=== PATIENT | male | born 1970 | race Caucasian/White ===

== ENCOUNTER → 2017-01-11 | Outpatient (CLI) | payer OTHER ==
--- NOTE | 2017-01-11 13:57 | KCIC ---
3 view right foot HISTORY: Gout. Right foot pain and swelling for a few days. Pain medial. FINDINGS: Bifid morphology of the lateral hallux sesamoid. No evidence of an acute fracture or bone destruction. Calcaneal spurs are noted. Mild degenerative spurring at the tibiotalar joint. No significant soft tissue abnormality. No dislocation. IMPRESSION: No evidence of acute radiographic abnormality. Electronically signed by: Mario Polo MD (01/11/2017 1:53 PM) [facility]
== END | disposition home or self-care (01) ==
LOC: KCIC 13:26
PROVIDERS: ATTEND Clinical Nurse Specialist Family Health
DX: M79.671 Pain in right foot (principal); M10.9 Gout, unspecified
CPT/HCPCS: 73630

== ENCOUNTER 2018-02-19 10:26 | Emergency (ER) | payer OTHER ==
[~2018-02-19] VITALS: Ht 185.4 cm; Wt 104.3 kg
[2018-02-19] MEDS ORDERED: IV NORMAL SALINE 1000ML BAG 1,000 ML IV SCH (10:58)
[2018-02-19] MEDS ORDERED: ONDANSETRON PF 4 MG/2 ML VIAL. IV ONE (11:00)
[2018-02-19] MEDS ORDERED: fentaNYL PF VIAL 100 MCG/2 ML VIAL IV ONE (11:00)
--- NOTE | 2018-02-19 11:06 | PHYS DOC ---
Past Medical History Additional Past Medical Histor: anxiety, insomnia Past Surgical History: No Surgical History Smoking: Chew Alcohol Use: Occasionally Adult General Chief Complaint Chief Complaint: ABDOMINAL PAIN HPI HPI Patient is a 47-year-old male who presents to the emergency room for evaluation of left upper and lower abdominal pain, which began this morning. He has had some nausea but no vomiting. Pain is in his left upper abdomen and radiates towards his left lower abdomen. He has had diverticulitis twice before, last episode 2 years ago. He has not had any fevers or chills, denies any hematuria or dysuria. He is uncertain if the pain feels exactly the same as his prior episodes of diverticulitis. There are no alleviating or exacerbating factors to his symptoms. The patient is very fidgety and unable to get comfortable, similar to classical presentation of patients with kidney stones. He has never had renal stones before. Review of Systems Review of Systems Constitutional: Denies fever or chills [] Eyes: Denies change in visual acuity, redness, or eye pain [] HENT: Denies nasal congestion or sore throat [] Respiratory: Denies cough or shortness of breath [] Cardiovascular: The patient denies any shortness of breath, chest pain, palpitations, or orthopnea [] GI: Denies vomiting, bloody stools or diarrhea [] : Denies dysuria or hematuria [] Musculoskeletal: Denies back pain or joint pain [] Integument: Denies rash or skin lesions [] Neurologic: Denies headache, focal weakness or sensory changes [] Endocrine: Denies polyuria or polydipsia [] All other systems were reviewed and found to be within normal limits, except as documented in this note. Current Medications Current Medications Current Medications Medications (Trade) Dose Ordered Sig/Kirk Start Time Stop Time Status Last Admin Dose Admin Fentanyl Citrate (Fentanyl 2ml Vial) 50 mcg 1X ONCE 02/19/18 11:00 02/19/18 11:02 DC 02/19/18 11:18 50 MCG Ondansetron HCl (Zofran) 4 mg 1X ONCE 02/19/18 11:00 02/19/18 11:02 DC 02/19/18 11:18 4 MG Sodium Chloride 1,000 ml @ 1,000 mls/hr Q1H 02/19/18 10:58 02/19/18 11:57 DC 02/19/18 11:20 1,000 MLS/HR Allergies Allergies Allergies Coded Allergies Type Severity Reaction Last Updated Verified codeine Allergy Intermediate Rash 02/19/18 Yes Physical Exam Physical Exam PHYSICAL EXAM: CONSTITUTIONAL: Well developed, well nourished HEAD: normocephalic, atraumatic EENT: PERRL, EOMI. Conjunctivae normal color, sclerae non-icteric; moist mucous membranes. NECK: Supple, non-tender; no meningismus. LUNGS: Lungs CTA, breathing even and unlabored. Normal air movement. HEART: Regular rate and rhythm, no murmur CHEST: No deformity; non-tender ABDOMEN: The abdomen is soft, there is diffuse tenderness to palpation left mid and lower abdomen, without rebound or guarding. Normal bowel sounds are present. The remainder the abdomen is soft and non-tender, no masses or bruits. EXTREM: Normal ROM; no deformity, no calf tenderness. Normal pulses palpable in all extremities. There is no pedal edema. SKIN: No rash; no diaphoresis NEURO: Alert; normal speech and cognition; CN's grossly intact; strength grossly intact without focal deficit. 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 Current Patient Data Vital Signs Vital Signs Date Time Temp Pulse Resp B/P (MAP) Pulse Ox O2 Delivery O2 Flow Rate FiO2 02/19/18 11:18 20 Room Air 02/19/18 10:40 98.3 80 176/106 (129) 98 98.3 Lab Values Laboratory Tests Test 02/19/18 11:20 White Blood Count 7.1 x10^3/uL (4.0-11.0) Red Blood Count 5.17 x10^6/uL (4.30-5.70) Hemoglobin 15.6 g/dL (13.0-17.5) Hematocrit 45.0 % (39.0-53.0) Mean Corpuscular Volume 87 fL (79-100) Mean Corpuscular Hemoglobin 30 pg (25-35) Mean Corpuscular Hemoglobin Concent 35 g/dL (31-37) Red Cell Distribution Width 13.1 % (11.5-14.5) Platelet Count 222 x10^3/uL (140-400) Neutrophils (%) (Auto) 59 % (31-73) Lymphocytes (%) (Auto) 27 % (24-48) Monocytes (%) (Auto) 8 % (0-9) Eosinophils (%) (Auto) 5 % (0-3) H Basophils (%) (Auto) 1 % (0-3) Neutrophils # (Auto) 4.2 x10^3uL (1.8-7.7) Lymphocytes # (Auto) 1.9 x10^3/uL (1.0-4.8) Monocytes # (Auto) 0.6 x10^3/uL (0.0-1.1) Eosinophils # (Auto) 0.3 x10^3/uL (0.0-0.7) Basophils # (Auto) 0.1 x10^3/uL (0.0-0.2) Urine Collection Type Void Urine Color Yellow Urine Clarity Clear Urine pH 5.0 Urine Specific [place] 1.020 Urine Protein Negative mg/dL (NEG-TRACE) Urine Glucose (UA) Negative mg/dL (NEG) Urine Ketones (Stick) Negative mg/dL (NEG) Urine Blood Negative (NEG) Urine Nitrite Negative (NEG) Urine Bilirubin Negative (NEG) Urine Urobilinogen Dipstick 0.2 mg/dL (0.2 mg/dL) Urine Leukocyte Esterase Negative (NEG) Urine RBC 0 /HPF (0-2) Urine WBC 0 /HPF (0-4) Urine Squamous Epithelial Cells None /LPF Urine Bacteria 0 /HPF (0-FEW) Urine Mucus Marked /LPF Sodium Level 141 mmol/L (136-145) Potassium Level 3.9 mmol/L (3.5-5.1) Chloride Level 103 mmol/L (98-107) Carbon Dioxide Level 27 mmol/L (21-32) Anion Gap 11 (6-14) Blood Urea Nitrogen 10 mg/dL (8-26) Creatinine 1.0 mg/dL (0.7-1.3) Estimated GFR (Cockcroft-Gault) 79.8 BUN/Creatinine Ratio 10 (6-20) Glucose Level 105 mg/dL (70-99) H Calcium Level 9.1 mg/dL (8.5-10.1) Total Bilirubin 0.9 mg/dL (0.2-1.0) Aspartate Amino Transferase (AST) 18 U/L (15-37) Alanine Aminotransferase (ALT) 36 U/L (16-63) Alkaline Phosphatase 93 U/L (46-116) Total Protein 7.3 g/dL (6.4-8.2) Albumin 3.9 g/dL (3.4-5.0) Albumin/Globulin Ratio 1.1 (1.0-1.7) Lipase 78 U/L (73-393) Laboratory Tests 02/19/18 11:20 Laboratory Tests 02/19/18 11:20 EKG EKG [] Radiology/Procedures Radiology/Procedures [PROCEDURE: CT ABDOMEN PELVIS WO CONTRAST CT ABDOMEN PELVIS WO CONTRAST dated 02/19/2018 11:19 AM Indication: Pain history of diverticulitisL FLANK PAIN H/O DIVERTICULITIS NO CONTRAST NO PREV . Comparison: No comparison is available. Technique: Contiguous axial imaging of the abdomen and pelvis performed without the administration of intravenous contrast. One or more of the following individualized dose reduction techniques were utilized for this examination: 1. Automated exposure control 2. Adjustment of the mA and/or kV according to patient size 3. Use of iterative reconstruction technique Findings: Limited images of lung bases are clear. Heart size within normal limits. No pleural or pericardial effusion. There is a calcified granuloma left lower lobe. Solid abdominal viscera not well evaluated in the absence of contrast material. No apparent attenuation abnormality of the liver or spleen. The gallbladder is unremarkable. Pancreas, adrenal glands and kidneys are unremarkable. No stone or hydronephrosis. Unopacified GI tract normal in caliber and contour. No focal bowel wall thickening. Scattered diverticula throughout the colon. No paracolonic inflammatory changes. The appendix is normal in caliber. No ascites or lymphadenopathy. Images of pelvis show nondistended urinary bladder. Prostate gland normal in size. No free fluid or lymphadenopathy. Bone windows show no acute findings. Mild lower lumbar spondylosis. IMPRESSION: 1. No acute abnormality of abdomen or pelvis. Normal appendix. 2. Diverticulosis with no evidence of acute diverticulitis. ] Course & Med Decision Making Course & Med Decision Making Pertinent Labs and Imaging studies reviewed. (See chart for details) [12:50 PM: The patient's condition remains stable. He is feeling much better. I' m uncertain of the etiology of his symptoms at this point. He states his symptoms feel similar to his prior episodes of diverticulitis and he'll be treated with a course of antibiotics presumptively. I discussed importance of close follow-up with his primary care provider and return precautions.] Dragon Disclaimer Dragon Disclaimer This electronic medical record was generated, in whole or in part, using a voice recognition dictation system. Departure Departure Impression: Primary Impression: Abdominal pain Disposition: HOME, SELF-CARE Condition: STABLE Referrals: HERNANDEZ MENDENHALL MD Patient Instructions: Abdominal Pain, Diverticulitis, Diverticulosis Scripts Levofloxacin (LEVAQUIN) 500 Mg Tablet 1 TAB PO DAILY, #7 TAB Prov: JANUSZ MAYFIELD MD 02/19/18 JANUSZ MAYFIELD MD Feb 19, 2018 11:06
--- NOTE | 2018-02-19 11:38 | RAD ---
CT ABDOMEN PELVIS WO CONTRAST dated 02/19/2018 11:19 AM Indication: Pain history of diverticulitisL FLANK PAIN H/O DIVERTICULITIS NO CONTRAST NO PREV . Comparison: No comparison is available. Technique: Contiguous axial imaging of the abdomen and pelvis performed without the administration of intravenous contrast. One or more of the following individualized dose reduction techniques were utilized for this examination: 1. Automated exposure control 2. Adjustment of the mA and/or kV according to patient size 3. Use of iterative reconstruction technique Findings: Limited images of lung bases are clear. Heart size within normal limits. No pleural or pericardial effusion. There is a calcified granuloma left lower lobe. Solid abdominal viscera not well evaluated in the absence of contrast material. No apparent attenuation abnormality of the liver or spleen. The gallbladder is unremarkable. Pancreas, adrenal glands and kidneys are unremarkable. No stone or hydronephrosis. Unopacified GI tract normal in caliber and contour. No focal bowel wall thickening. Scattered diverticula throughout the colon. No paracolonic inflammatory changes. The appendix is normal in caliber. No ascites or lymphadenopathy. Images of pelvis show nondistended urinary bladder. Prostate gland normal in size. No free fluid or lymphadenopathy. Bone windows show no acute findings. Mild lower lumbar spondylosis. IMPRESSION: 1. No acute abnormality of abdomen or pelvis. Normal appendix. 2. Diverticulosis with no evidence of acute diverticulitis. Electronically signed by: Mario Mireles MD (02/19/2018 11:35 AM) [id number]
[2018-02-19 11:41] LABS: BASO # 0.1 x10^3/uL (0.0-0.2); BASO % 1 % (0-3); EOS # 0.3 x10^3/uL (0.0-0.7); EOS % 5 % (0-3); HEMOGLOBIN 15.6 g/dL (13.0-17.5); LYMPH # 1.9 x10^3/uL (1.0-4.8); LYMPH % 27 % (24-48); MEAN CORPUSCULAR HEMOGLOBIN 30 pg (25-35); MEAN CORPUSCULAR HGB CONC 35 g/dL (31-37); MEAN CORPUSCULAR VOLUME 87 fL (79-100); MONO # 0.6 x10^3/uL (0.0-1.1); MONO % 8 % (0-9); NEUT # 4.2 x10^3uL (1.8-7.7); NEUT % 59 % (31-73); PLATELET COUNT 222 x10^3/uL (140-400); RED BLOOD COUNT 5.17 x10^6/uL (4.30-5.70); RED CELL DISTRIBUTION WIDTH 13.1 % (11.5-14.5); WHITE BLOOD COUNT 7.1 x10^3/uL (4.0-11.0)
[2018-02-19 11:46] LABS: CALCIUM 9.1 mg/dL (8.5-10.1); GFR 79.8; POTASSIUM 3.9 mmol/L (3.5-5.1)
[2018-02-19 11:52] LABS: ALBUMIN 3.9 g/dL (3.4-5.0); ALBUMIN/GLOBULIN RATIO 1.1 (1.0-1.7); TOTAL BILIRUBIN 0.9 mg/dL (0.2-1.0); TOTAL PROTEIN 7.3 g/dL (6.4-8.2)
[2018-02-19 11:57] LABS: BILIRUBIN,URINE NEGATIVE (NEG); CLARITY,URINE CLEAR; COLOR,URINE YELLOW; NITRITE,URINE NEGATIVE (NEG); PROTEIN,URINE NEGATIVE (NEG-TRACE); UROBILINOGEN,URINE 0.2 mg/dL (0.2 mg/dL)
[2018-02-19 12:03] LABS: BACTERIA,URINE 0 /HPF (0-FEW); RBC,URINE 0 /HPF (0-2); WBC,URINE 0 /HPF (0-4)
[2018-02-19 12:30] VITALS: BP 137/91
[2018-02-19] MEDS ORDERED: LEVO500T59 PO (12:53)
== END 2018-02-19 13:01 | disposition home or self-care (01) ==
LOC: ER 10:26
DX: R10.12 Left upper quadrant pain (principal); R10.32 Left lower quadrant pain; F41.9 Anxiety disorder, unspecified; F17.200 Nicotine dependence, unspecified, uncomplicated; Z88.5 Allergy status to narcotic agent
CPT/HCPCS: 36415; 74176; 80053; 81001; 83690; 85025; 96374; 96375; 99285; J2405; J3010; J7030